=== PATIENT | male | born 1950 | race African-American/Black ===

== ENCOUNTER 2021-06-06 21:30 | Inpatient (IN) | payer OTHER ==
[~2021-06-06] VITALS: Ht 198.1 cm; Wt 89.8 kg
--- NOTE | ~2021-06-06 | EMS ---
[address] [address] EMS Patient Care Report Name: SUSAN SULLIVAN Room #: 206-P ADM IN M.R.#: [id number] Admission: 06/06/21 Attend Phys: Darien Hernandez MD Discharge: Date of : 50 Report #: [id number] THIS REPORT FOR: //name// Report Transmitted: 06/09/2021 15:13 EMS Care Summary [place], [place] Incident [id number] @ 06/06/2021 20:53 Incident Location [address] [place] [address] Patient SUSAN SULLIVAN Male, 70 Years 1951-02-14 Patient Address [address] [place] [address] Patient History Pneumonia, Chief Complaint Shortness of breath Disposition Transported No Lights/[place] Dispatch Reason Breathing Problem Transported To [facility] Narrative M42 arrived on scene to find the patient standing upright. Staff had called because the patient had been very short of breath after walking this evening. The doctor at the facility had diagnosed the patient with possible pneumonia this morning. Patient after he would stand up and walk 02 sat was around 85% and his respiratory rate was 30 according to nursing staff. Patient was in no apparent respiratory distress for us. Patient denied chest pain, fever, or cough. Patient was moved to the cot and secured with seat belts. En route to [address] [address] EMS Patient Care Report Name: SUSAN SULLIVAN Room #: 206-P ADM IN [facility]#: [id number] Admission: 06/06/21 Attend Phys: Darien Hernandez MD Discharge: Date of : 50 Report #: [id number] the hospital no changes in the patient condition occurred. M42 arrived on scene of the hospital and patient care was transferred to the RN. Initial Vitals @21:02P: 89,R: 16,BP: 125/84,Pain: 0/10,GCS: 14,Glucose: 143,CO: 9,SpO2: 93,Revised Trauma: 12, @21:09P: 88,R: 16,BP: 124/86,Pain: 0/10,GCS: 14,CO: 7,SpO2: 94,Revised Trauma: 12, Assessments @20:58MENTAL:Person Oriented,Event Oriented,Confused,SKIN:No Abnormalities,HEENT:Head/Face: No Abnormalities,Eyes: No Abnormalities,Neck/Airway: No Abnormalities,LUNG SOUNDS:General: No Abnormalities,Left Upper: No Abnormalities,Right Upper: No Abnormalities,Left Lower: No Abnormalities,Right Lower: No Abnormalities,ABDOMEN:General: No Abnormalities,Left Upper: No Abnormalities,Right Upper: No Abnormalities,Left Lower: No Abnormalities,Right Lower: No Abnormalities,PELVIS//GI:No Abnormalities,EXTREMITIES:Left Arm: No Abnormalities,Right Arm: No Abnormalities,Left Leg: No Abnormalities,Right Leg: No Abnormalities,PULSE:NEURO:No Abnormalities,@21:11MENTAL:Event Oriented,Person Oriented,Confused,SKIN:No Abnormalities,HEENT:Head/Face: No Abnormalities,Eyes: No Abnormalities,Neck/Airway: No Abnormalities,LUNG SOUNDS:General: No Abnormalities,Left Upper: No Abnormalities,Right Upper: No Abnormalities,Left Lower: No Abnormalities,Right Lower: No Abnormalities,ABDOMEN:General: No Abnormalities,Left Upper: No Abnormalities,Right Upper: No Abnormalities,Left Lower: No Abnormalities,Right Lower: No Abnormalities,PELVIS//GI:No Abnormalities,EXTREMITIES:Left Arm: No Abnormalities,Right Arm: No Abnormalities,Left Leg: No Abnormalities,Right Leg: No Abnormalities,PULSE:NEURO:No Abnormalities, Impression Shortness of breath Procedures @20:58 ALS Assessment Response: UnchangedSucceeded Timeline 20:51,Call Received 20:51,Dispatch Notified 20:53,Dispatched 20:53,En Route 20:57,On Scene 20:58,At Patient 20:58,ALS Assessment,Response: UnchangedSucceeded, 21:02,BP: 125/84 M,PULSE: 89,RR: 16 R,SPO2: 93 Ox,ETCO2: ,B,PAIN: 0,GCS: [address] [address] EMS Patient Care Report Name: SUSAN SULLIVAN Room #: 206-P ADM IN M.R.#: [id number] Admission: 06/06/21 Attend Phys: Darien Hernandez MD Discharge: Date of : 50 Report #: [id number] 14, 21:09,BP: 124/86 M,PULSE: 88,RR: 16 R,SPO2: 94 Ox,ETCO2: ,BG: ,PAIN: 0,GCS: 14, 21:11,Depart Scene 21:18,At Destination 21:29,Call Closed Disclaimer v1.1 Copyright 2020 [employer] This EMS Care Summary contains data elements from the applicable legal record (which may be displayed differently). It is designed to provide pertinent information for the following purposes: continuity of care, clinical quality, and state data reporting. The complete legal record is available to ED staff and administrators of the receiving hospital in [employer]'s Patient Tracker. All data is provided "as is."
[2021-06-06 21:40] VITALS: BP 139/40
[2021-06-06 21:46] LABS: HEMATOCRIT 30.3 % (42.0-52.0); HEMOGLOBIN 10.1 gm/dL (14.0-18.0); MCH 20.1 pg (26.0-34.0); MCHC 33.3 g/dL (28.0-37.0); MCV 60.4 fL (80.0-100.0); PLATELET COUNT 608 thou/uL (150-400); RBC 5.01 mil/uL (4.50-6.00); RDW 18.6 % (10.5-14.5); WBC 22.1 thou/uL (4.0-11.0)
[2021-06-06 21:57] LABS: CALCIUM 8.6 mg/dL (8.5-10.1); CREATININE 0.8 mg/dL (0.7-1.3); POTASSIUM 5.6 mmol/L (3.5-5.1)
[2021-06-06 22:02] LABS: ALBUMIN 1.9 g/dL (3.4-5.0); TOTAL BILIRUBIN 0.4 mg/dL (0.2-1.0); TOTAL PROTEIN 7.7 g/dL (6.4-8.2)
[2021-06-06 22:28] LABS: ABSOLUTE NEUTROPHILS 20.1 thou/uL (1.4-8.2); METAMYELOCYTES 1 %; PLATELET ESTIMATE MARKEDLY INCREASED
[2021-06-06 22:29] LABS: ANISOCYTOSIS 1+; BURR CELLS 1+; LARGE PLATELETS FEW; POIKILOCYTOSIS 1+; POLYCHROMASIA 1+; SCHISTOCYTES 1+
[2021-06-06 23:30] LABS: BE(vivo) 3.7 mmol/L (-2 to +3); HCO3 29.6 mmol/L (22.0-26.0); PCO2 50.4 mmHg (35.0-45.0); PO2 73.3 mmHg (80.0-100.0); pH 7.386 (7.360-7.450); sO2 94.4 % (92.0-98.0)
[2021-06-07] VITALS (8 sets, daily range): BP systolic 111–137; BP diastolic 74–91
[2021-06-07 02:16] LABS: BF NUCLEATED CELLS 3108 /mm3; BF RBC 7663 /mm3; CLARITY CLOUDY; COLOR YELLOW; SOURCE PLEURAL; TOTAL VOLUME 6.5 mL
[2021-06-07 03:17] LABS: HEMATOCRIT 34.6 % (42.0-52.0); HEMOGLOBIN 10.8 gm/dL (14.0-18.0); MCH 19.1 pg (26.0-34.0); MCHC 31.1 g/dL (28.0-37.0); MCV 61.4 fL (80.0-100.0); RBC 5.64 mil/uL (4.50-6.00); RDW 18.3 % (10.5-14.5); WBC 17.1 thou/uL (4.0-11.0)
--- NOTE | 2021-06-07 04:00 | NUR ---
PT IS AN ADMIT ORIENTATION X2. SOME CONFUSION HISTORY OF DEMENTIA AND PARANOID SCHIZOPHRENIA. PT WAS AN ADMIT FOR PLEURAL EFFUSION WITH CHEST TUBE PLACEMENT TO LEFT SIDE AND DRAINED. PT IS VERY HARD OF HEARING. LUNGS ARE CLEAR TO DIMINNISHED. NO EDEMA NOTED. PT HERNIA ON SCROTUM WITH ASSESSMENT. ANTIBIOTICS GIVEN ORDERED. DENIES ANY COMPLAINTS OF PAIN NOTED. CALL LIGHT WITHIN REACH IF NEEDS ASSISTANCE PER NURSING
[2021-06-07 04:27] LABS: CALCIUM 8.7 mg/dL (8.5-10.1); CREATININE 0.7 mg/dL (0.7-1.3)
[2021-06-07 04:33] LABS: POTASSIUM 4.6 mmol/L (3.5-5.1)
--- NOTE | 2021-06-07 04:38 | NUR ---
PT IS ALERT AND ORIENTED X4. LUNGS ARE CLEAR TO DIMINISHED. UP TO BEDSIDE COMMODE WITH STANBY ASSISTANCE X1. COMPLAINS OF CONSTIPATION. BUT UNABLE TO HAVE A BOWEL MOVEMENT. DENIES ANY PAIN ISSUES. EXPLAIN TO PT FLUID RESTRICTION AT THIS TIME. PT UNAWARE OF RESTRICTION. VERBALIZES UNDERSTANDING NOW ONCE EXPLAIN TO PT PER CARE. CALL LIGHT WITHIN REACH IF NEEDS ASSISTACE PER NURSING.
[2021-06-07 05:04] LABS: BF MACROPHAGE 0 %; BF NEUTROPHILS 52 %
[2021-06-07 09:45] LABS: SOURCE THORACENTESIS
--- NOTE | 2021-06-07 09:58 | EKG ---
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
--- NOTE | 2021-06-07 10:28 | NUR ---
TOOK OVER CARE OF PATIENT AT 0700. PATIENT RESTING IN BED DURING REPORT. ASSESSED PATIENTS LEFT CHEST TUBE SITE; DX SATURATION WITH BLOOD TINGED FLUID; DRESSING CHANGED AND SECURED. PT SLEEPING IN BED AT THIS TIME. DENIES ANY SOA, PAIN, DIZZINESS, OR NAUSE. FALL PRECAUTIONS IN PLACE AND CALL LIGHT WITHIN REACH. PATIENT WEARING 1 L OXYGEN VIA NASAL CANNULA. DENIES ANY NEEDS AT THIS TIME. ASSESSMENT CHARTED.
--- NOTE | 2021-06-07 12:17 | NUR ---
THIS PATIENT WAS ATTEMPTING TO EXIT THE BED. THIS NURSE REDIRECTED PATIENT TO SIT BACK DOWN ON BED. PATIENTS CHEST TUBE DX SATURATED WITH PINK-TINGED DRAINAGE. CALLED DR. PUCKETT REGARDING INCREASED DRAINAGE. DR. PUCKETT STATED TO CONTINUME MONITORING DRAINAGE AND COMPLETE DRESSING CHANGES NEEDED. DR. PUCKETT STATED HE WOULD COME TO LOOK AT THE CHEST TUBE. WILL CHANGE THE DRESSING AND CONTINUE TO MONITOR.
[2021-06-08] VITALS (7 sets, daily range): BP systolic 108–125; BP diastolic 66–84
--- NOTE | 2021-06-08 06:03 | NUR ---
This RN was informed patient was smoking in room. RN to bedside, RN and team found 3 cigar butts in patient bed. With security personal belongings seized and room searched. Informed warehouse person and RN to write verge report.
[2021-06-08 09:06] LABS: BODY FLUID AMYLASE 35 U/L (()); BODY FLUID GLUCOSE 84 mg/dL (()); BODY FLUID LDH 395 IU/L (()); BODY FLUID PROTEIN 5.2 g/dL (())
--- NOTE | 2021-06-08 16:51 | NUR ---
PATIENT ASSESMENTS CHARTED. PATIENT HAS BEEN CONFUSED AND JUMPING OUT OF BED ALL DAY. HAS CHEST TUBE, GAMA, AND ANTIBIOTICS HOOKED UP. CHEST TUBE HAS PUT OUT 100ML THIS SHIFT.
[2021-06-09 03:22] VITALS: BP 112/62
--- NOTE | 2021-06-09 06:20 | NUR ---
ASSUMED CARE OF PT AT 1900. PT ASSESSED TO BE AOX1 70M PRESENTING WITH PE W CH TUBE, PNEUMONIA, AND SEPSIS. PT RESTED THROUGHOUT THE NIGHT IN BED WITH NO COMPLAINTS, VSS. PT STABLE ON RA BUT USES 2L FOR COMFORT, RUNS NS ON TELE, L CHEST TUBE TO -20 SUCTION AND STABLE (DRESSING CHANGED WITH MAIN ENTREE COOK AND CASHIER), GAMA PATENT, AND WAS ABLE TO HAVE SMALL BM THIS AM. SCROTAL EDEMA EXCESSIVE DUE TO INGUINAL HERNIA. RESTING IN ROOM NOW, WILL CONT TO MONITOR.
[2021-06-09 07:45] VITALS: BP 122/75
[2021-06-09 11:40] VITALS: BP 132/86
[2021-06-09 15:11] VITALS: BP 133/87
--- NOTE | 2021-06-09 18:38 | NUR ---
PATIENT ASSESMENTS COMPLETED AND CHARTED. PATIENT CONFUSED BUT FOLLOWING COMMANDS TODAY. ATE ALL MEALS 100%. DOCTORS DEBATING BRONCH. CAT SCAN DONE TODAY.
[2021-06-09 20:45] VITALS: BP 126/83
[2021-06-10 04:44] LABS: CALCIUM 8.5 mg/dL (8.5-10.1); CREATININE 0.9 mg/dL (0.7-1.3); POTASSIUM 3.6 mmol/L (3.5-5.1)
[2021-06-10 04:45] VITALS: BP 131/90
[2021-06-10 08:06] VITALS: BP 159/80
[2021-06-10 08:30] VITALS: BP 121/83
--- NOTE | 2021-06-10 08:39 | NUR ---
assessments as charted , vss, no c/o pain, remains confused and impulsive, reinforced ct tape and coban at iv site, pt more talkative this am found in room with his street clothes on, report given to next shift to con't ppoc
[2021-06-10 12:00] VITALS: BP 102/61
[2021-06-10 15:28] VITALS: BP 136/84
--- NOTE | 2021-06-10 16:35 | NUR ---
met with patient who admits from [facility]. Patient admits with SOA/Pna. Patient says yes to many questions. Spoke of Chris who is his roommate at [facility]. Sp with Jake at [facility]. Patient with need for Bronch, patient cannot consent. Jake reports no DPOA. Emergency contact is brother Oneil and Sister Lisset Carrera [phone]. Sp with Brother Oneil [phone] updated of role of casemgt faxed clinical information to [place]. Oneil would like to be called at co. Casemgt following.
[2021-06-10 19:43] VITALS: BP 114/68
[2021-06-11] MEDS ORDERED: AMLODIPINE BESY10 MG PO (00:04)
[2021-06-11] MEDS ORDERED: FOLIC ACID1 MG PO (00:05)
[2021-06-11] MEDS ORDERED: CARVEDILOL25 MG PO (00:05)
[2021-06-11] MEDS ORDERED: LISINOPRIL20 MG PO (00:06)
[2021-06-11] MEDS ORDERED: KLOR-CON M2020 MEQ PO (00:07)
[2021-06-11] MEDS ORDERED: RISPERIDONE2 MG PO (00:08)
[2021-06-11] MEDS ORDERED: RISPERDAL2 MG PO (00:09)
[2021-06-11] MEDS ORDERED: TORSEMIDE20 MG PO (00:09)
[2021-06-11] MEDS ORDERED: ACETAMINOPHEN500 MG PO (00:10)
--- NOTE | 2021-06-11 03:19 | NUR ---
ASSUMED PT CARE AT 1900, PT IS AWAKE, ALERT TO SELF, CONFUSE; IMPULSIVE TO THE B/S COMMODE WITHOUT ASSISTANCE; PT REDIRECTED TO BED AND REMINDED TO USE CALL LIGHT FOR NEEDS; PT GOT UP AND WAS ABLE TO PUT CLOTHES ON, PT REFUSED TO GET BACK TO BED, WANTING TO LEAVE, SECURITY WAS CALLED, PT WAS PUT BACK TO BED, CT IN PLACE; REINFORCED WITH FOAM TAPE, SA/SR ON TELE, VSS, REMAINS ON IV ABX, PT IS NPO FOR BRONCHOSCOPY TODAY, PROGRESSING SLOWLY TOWARDS POC, WILL CONTINUE TO MONITOR PT PER POC
[2021-06-11 05:11] VITALS: BP 116/73
--- NOTE | 2021-06-11 08:44 | NUR ---
Assumed care of pt this AM. Pt leaving for bronchoscopy @ 0700. Chest tube in place on lt side & set to -20 suction. Will assess pt once back on unit.
[2021-06-11 09:51] VITALS: BP 123/85
--- NOTE | 2021-06-11 12:07 | PATH ---
[facility] [address] [place] [address] PATHOLOGY RPT PROCEDURE Name: SUSAN SULLIVAN Room #: 206-P ADM IN M.R.#: [id number] Admission: 06/06/21 Date of : 50 Discharge: Report #: [id number] Path Case #: [id number] Note [facility] Accession Number: [id number] TESTS RESULT FLAG UNITS REF RANGE LAB Clinician Provided Cytology Information No. of containers..01 Other (Miscellaneous) Source: 01 PLEURAL FLUID DIAGNOSIS: 02 PLEURAL FLUID NEGATIVE FOR MALIGNANT CELLS. SCANT CELLULARITY. Comment: Specimen consists of few degenerated mesothelial cells and inflammatory cells. Signed out by: 02 Kerry Garcia MD, Pathologist NPI- [id number] Performed by: 01 Valerie Godfrey Print Finisher ([facility]) Gross description: 01 1 ML, YELLOW, HAZY /LCS 06/10/2021 1300 Local FLAG LEGEND: L-Low Normal,H-High Normal,LL-Alert Low,HH-Alert High <-Panic Low,>-Panic High,A-Abnormal,AA-Critical Abnormal Performed at: [address] [place] [address] Jagjit Martinez MD, [address] [address] Ann Adair MD, Specimen Comment: A courtesy copy of this report has been sent to [phone] Specimen Comment: Report sent to Performed at: [address], [place], [place] [id number] MD Jagjit Martinez MD Phone: [phone]
[2021-06-11 12:08] VITALS: BP 125/88
[2021-06-11 14:49] LABS: ABSOLUTE NEUTROPHILS 18.1 thou/uL (1.4-8.2); BASOPHILS 0.1 % (0.0-2.0); EOSINOPHILS 0.4 % (0.0-3.0); HEMOGLOBIN 11.5 gm/dL (14.0-18.0); LYMPHOCYTES 2.7 % (24.0-44.0); MCH 19.2 pg (26.0-34.0); MCHC 31.2 g/dL (28.0-37.0); MCV 61.6 fL (80.0-100.0); MONOCYTES 3.1 % (1.0-8.0); PLATELET COUNT 620 thou/uL (150-400); POLYS 93.7 % (36.0-66.0); RBC 6.01 mil/uL (4.50-6.00); RDW 18.6 % (10.5-14.5); WBC 19.4 thou/uL (4.0-11.0)
[2021-06-11 15:04] LABS: APTT 24.6 Seconds (24.5-32.8); INR 1.16; PROTIME 12.6 Seconds (10.5-12.1)
[2021-06-11 15:05] VITALS: BP 110/82
[2021-06-11 15:17] LABS: HYPOCHROMASIA 2+; MICROCYTES 1+
[2021-06-11 15:18] LABS: ANISOCYTOSIS 1+
--- NOTE | 2021-06-11 18:47 | NUR ---
Received pt to room 208 from 4S around 1600. Received pt on 150mL NS, with orders to decrease fluids to 75mL/hr from Dr. Rojas this AM. Called Dr. Dumont, per d/c fluids & await addt. orders from Dr. Rojas. Pt noted to be tachypneic, labored breathing, mottled & with poor cap refill. Per Dr. Dumont, order received to repeat CXR & ABGs. Pt oriented to self & extremely tearful stating that she hurts. Pt states that people are hurting her when no one is touching her. Orders received from Dr. Dumont for PRN IV pain medication. Wounds to rt grt toe, pad of rt grt toe, rt heel, buttocks, & lt arm.
[2021-06-11 19:50] VITALS: BP 118/81
[2021-06-12] VITALS (7 sets, daily range): BP systolic 114–146; BP diastolic 75–90
--- NOTE | 2021-06-12 05:41 | NUR ---
ASSUMED PT CARE AT 1900, SR ON TELE, DENIES PAIN OR SOA, ASSESSMENTS CHARTED, CHEST TUBE REMAINS IN PLACE, DRAINING SEROUS FLUID, DRESSING INTACT, GAMA IN PLACE, ADEQUATE U/O, LOOSE BM THIS SHIFT, REMAINED CONFUSED, WILL CONTINUE TO MONITOR PER POC
[2021-06-12 08:42] LABS: URINE BILIRUBIN NEGATIVE (Negative); URINE BLOOD 1+ (Negative); URINE CLARITY CLEAR; URINE COLOR YELLOW; URINE GLUCOSE-RANDOM* NEGATIVE (Negative); URINE KETONES NEGATIVE (Negative); URINE LEUKOCYTES-REFLEX TRACE (Negative); URINE NITRITE-REFLEX NEGATIVE (Negative); URINE PROTEIN (DIPSTICK) NEGATIVE (Negative); URINE SPECIFIC GRAVITY 1.025 (1.005-1.035); URINE UROBILINOGEN 0.2 E.U./dl (0.2-1.0)
[2021-06-12 09:49] LABS: SQUAMOUS >10 Many /LPF (0-3)
[2021-06-12 09:50] LABS: BACTERIA-REFLEX 1-9 Few /HPF (None Seen); CASTS None Seen /LPF (None Seen); CRYSTALS None Seen /LPF (None Seen); URINE RBC 3-10 Few /HPF (NONE SEEN); URINE WBC-REFLEX 0-5 Rare /HPF (0-5)
--- NOTE | 2021-06-12 13:11 | NUR ---
CARE HANDED OFF TO DAINA ENCISO AT THIS TIME. PATIENT STABLE AT TIME OF HAND OFF
--- NOTE | 2021-06-12 14:10 | NUR ---
took over care of this patient at 1300 after getting report from Verito LAMA. patient resting in bed at this time. patient wearing 2 L oxygen via NC. patient denies soa, denies coughing. patient denies pain. patient denies any needs at this time. fall precautions in place and call light within reach. will continue to monitor and assessments as charted.
--- NOTE | 2021-06-12 17:40 | NUR ---
Spoke with [facility]. Faxed clinical updates.
--- NOTE | 2021-06-13 03:00 | NUR ---
ASSUMED PT CARE AT 1900, ALERT TO SELF. NON-VERBAL, ASSESSMENTS CHARTED, SR/ST ON TELE, FOLEFY CATHETER IN PLACE; ADEQUATE U/O, CHEST TUBE IN PLACE DRAINING WELL; DRESSING CHANGED, SKIN WITHIN NORMAL LIMITS, DENIES PAIN OR SOB, REMAINS ON RA, O2SATS ND OTHER VITAL SIGNS STABLE, INCONTINENT OF LOOSE STOOLX1 THIS SHIFT, DENIES CONCERNS, WILL CONTINUE TO MONITOR PT PER POC
[2021-06-13 04:34] VITALS: BP 112/77
--- NOTE | 2021-06-13 05:27 | NUR ---
assumed pt care at 1900, alert to self, place, pleasantly confused, assessments as charted, sr/sb on tele with pacs, palmer in place with adequate u/o, left chest tube intact, dressing chnaged, skin within normal limits, denies pain or sob, remains on room air, o2sats and other vss stable, incontinent of loose stoolx1 this shift, denies concerns, remains on iv abx, will continue to monitor per poc
[2021-06-13 07:34] VITALS: BP 124/85
[2021-06-13 11:19] VITALS: BP 129/92
[2021-06-13 13:36] LABS: HEMATOCRIT 38.7 % (42.0-52.0); HEMOGLOBIN 11.9 gm/dL (14.0-18.0); MCHC 30.7 g/dL (28.0-37.0); PLATELET COUNT 517 thou/uL (150-400); RBC 6.24 mil/uL (4.50-6.00); RDW 18.9 % (10.5-14.5); WBC 19.2 thou/uL (4.0-11.0)
[2021-06-13 14:03] LABS: CALCIUM 8.8 mg/dL (8.5-10.1); CREATININE 1.3 mg/dL (0.7-1.3); MAGNESIUM 2.3 mg/dL (1.8-2.4)
[2021-06-13 14:17] VITALS: BP 111/67
[2021-06-13 15:07] LABS: ABSOLUTE NEUTROPHILS 17.9 thou/uL (1.4-8.2); METAMYELOCYTES 1 %; MYELOCYTES 3 %
[2021-06-13 15:10] LABS: HYPOCHROMASIA 2+; MICROCYTES 2+
[2021-06-13 15:11] LABS: ANISOCYTOSIS 2+; POIKILOCYTOSIS 2+
--- NOTE | 2021-06-13 16:48 | NUR ---
Patient resides at [facility]. Therapy evals in process. patient may need post acute care. [facility] does not have skilled unit.
[2021-06-13 19:46] VITALS: BP 104/56
--- NOTE | 2021-06-13 22:04 | NUR ---
PT UP IN CHAIR TODAY WITH PT, PT UP READING BIBLE, KNOWS NAME, , LOCATION, WAS CONFUSED WITH YEAR, FOLLOW COMMANDS, NO PAIN OR DISTRESS, PT CLEANED, BEDDING CHANGED, CHEST TUBE NOTED AND MONITOR, PT EDUCATED ON FALL RISK, USES CALL LIGHT TO CONTACT STAFF. NO COMPLAINTS OR CONCERNS AT THIS TIME.
[2021-06-14 04:46] VITALS: BP 126/64
--- NOTE | 2021-06-14 06:36 | NUR ---
PATIENT RESTING IN HIS ROOM. HE IS AAOX2. NOTED CHECT TUBE IN PLACE TO L CHEST WALL TO SUCTION. DRESSING IS CDI. NOTED 30CC OUTPUT DURING THIS SHIFT. PATIENT DENIES PAIN OR NEEDS. WAS ABLE TO FOLLOW ALL COMMANDS A INTRUCTIONS TONIGHT. TOOK ALL MEDICATIONS PRDERED. NO S/S OF DISTRESS NOTED, WILL CONTINUE TO MONITOR.
[2021-06-14 07:55] VITALS: BP 128/85
[2021-06-14 11:45] VITALS: BP 133/91
[2021-06-14 20:00] VITALS: BP 127/77
[2021-06-15 04:30] VITALS: BP 140/86
--- NOTE | 2021-06-15 05:19 | NUR ---
PT IS ALERT AND OREINTED X2 WITH FOREGETFULLNESS. DENIES ANY COMPLAINTS OF PAIN. LUNGS ARE COARSE HAS CHEST TUBE ON THE LEFT SIDE TO SUCTION. DRAINING SEROSANGIOUS FLUID NOTED IN CHAMBER. -20 TO PRESSURE. NO EDEMA NOTED JUST DRY SKIN PT HAS A GAMA CATH TO DD WITH YELLOW URINE PRESENT.DENIES ANY PAIN NOTED WITH ASSESSMENNT PER NURSING. RESTING COMFORTABLY.
[2021-06-15 08:00] VITALS: BP 123/83
[2021-06-15 11:30] VITALS: BP 126/83
[2021-06-15 16:00] VITALS: BP 135/90
[2021-06-15 16:30] VITALS: BP 135/90
[2021-06-15 17:06] LABS: BODY FLUID ALBUMIN 0.3 g/dL (Not Estab.); BODY FLUID GLUCOSE < 2 mg/dL (()); BODY FLUID LDH 2570 IU/L (())
--- NOTE | 2021-06-15 17:16 | NUR ---
PT RESTED IN BED AND DENIED COMPLAINTS. MID AFTERNOON PT GOT HIMSELF OUT OF BED WITHOUT USING HIS CALL LIGHT TO USE THE BEDSIDE COMMODE, DISCONNECTING THE GAMA BAG FROM THE GAMA. REATTACHED THE CONNECTION GAMA APPEARS TO BE WORKING APPROPRIATELY. PT WAS REEDUCATED ON THE NEED TO USE HIS CALL LIGHT. PT HAD 1 BOWEL MOVEMENT. NO VISITORS TODAY.
[2021-06-15 19:42] VITALS: BP 118/85
--- NOTE | 2021-06-16 04:12 | NUR ---
RECEIEVED PATIENT AT 1900H.ASSESSMENT DONE CHARTED.MEDS GIVEN PER SEP.CHA LEFT CHEST TUBE INTACT, ON -20 SUCTION PRESSURE.WITH GAMA CATHETER INTACT.ALL NEEDS ATTENDED.TO CONTINOUSLY MONITOR.
[2021-06-16 04:17] VITALS: BP 136/88
[2021-06-16 07:30] VITALS: BP 130/96
[2021-06-16 08:11] LABS: BODY FLUID AMYLASE 27460 U/L (())
[2021-06-16 10:03] LABS: SOURCE CHEST
[2021-06-16 11:00] LABS: HEMATOCRIT 37.3 % (42.0-52.0); HEMOGLOBIN 11.3 gm/dL (14.0-18.0); MCH 18.9 pg (26.0-34.0); MCHC 30.4 g/dL (28.0-37.0); MCV 62.2 fL (80.0-100.0); PLATELET COUNT 451 thou/uL (150-400); RDW 19.9 % (10.5-14.5); WBC 20.3 thou/uL (4.0-11.0)
[2021-06-16 11:18] LABS: CALCIUM 8.5 mg/dL (8.5-10.1); CREATININE 1.3 mg/dL (0.7-1.3); MAGNESIUM 2.1 mg/dL (1.8-2.4); POTASSIUM 4.4 mmol/L (3.5-5.1); TOTAL BILIRUBIN 0.3 mg/dL (0.2-1.0); TOTAL PROTEIN 6.4 g/dL (6.4-8.2)
[2021-06-16 12:00] VITALS: BP 117/80
[2021-06-16 13:00] LABS: ABSOLUTE NEUTROPHILS 19.5 thou/uL (1.4-8.2); PLATELET ESTIMATE NORMAL
--- NOTE | 2021-06-16 16:12 | NUR ---
Assumed care of pt this AM. Pt is A&O x2. on RA. SR on the monitor. Lt chest tube intact & hooked to -20 suction, draining serous fluid. Pt denies any pain. Critical result called to this nurse regarding blood glucose @ 534. Dr notified & orders obtained for sliding scale insulin.
[2021-06-16 16:30] VITALS: BP 128/66
[2021-06-16 19:45] VITALS: BP 114/77
--- NOTE | 2021-06-17 04:42 | NUR ---
Pt is alert and and confused. No sign of distress noted in pt. Pt is laying in bed, resting comfortably. Denies pain. Fall precaution in place. Assessment completed and documented. Scheduled meds administered to pt. No acute event noted. Continue to monitor.
[2021-06-17 04:53] VITALS: BP 123/85
[2021-06-17 07:42] VITALS: BP 135/84
[2021-06-17 11:24] VITALS: BP 110/78
[2021-06-17 15:41] VITALS: BP 96/63; BP 98/59
[2021-06-17 15:59] VITALS: BP 116/75
--- NOTE | 2021-06-17 18:33 | NUR ---
Assumed care of pt this AM. Pt is A&O x2. Pt extra sleepy this shift. Chest tube in place & set to -20 suction. Pt denies any pain. Speech eval today w/ diet change & 100% supervision while eating. High fall precautions in place.
[2021-06-17 19:53] VITALS: BP 100/71
--- NOTE | 2021-06-18 03:23 | NUR ---
PT IS ALERT AND ORIENTED X2. WITH SOME CONFUSION. PT SLEEPING. LUNGS ARE CLEAR DIMINISHED ON ROOM AIR. PT HAS A CHEST TUBE ON LEFT SIDE TO SUCTION. ABDOMEN IS SOFT FLAT. ACTIVE BOWEL SOUNDS. GAMA CATH TO DD . DENIES ANY COMPLAINTS OF PAIN. CALL LIGHT WITHIN REACH IF NEEDS ASSSISTANCE. BED ALARM ON FOR PT SAFETY AT THIS TIME TIME. ONGOING NURSING CARE
[2021-06-18 04:45] VITALS: BP 96/63
[2021-06-18 07:55] VITALS: BP 115/81
[2021-06-18 08:00] VITALS: BP 115/81
[2021-06-18 11:31] VITALS: BP 92/59
[2021-06-18 16:37] VITALS: BP 108/76
--- NOTE | 2021-06-18 17:01 | NUR ---
5N cont to follow. Oncology consulted regarding lung mass. Oncology to sp with brother regarding plan of care.
--- NOTE | 2021-06-18 17:19 | NUR ---
PATIENT BIOPSY OF LEFT LUNG SHOWED INVASIVE SQUAMOUS CELL CANCER, SUSPECTED STAGE 4, AND POOR PROGNOSIS. HE IS NOT A SURGICAL CANDIDATE D/D UNCLEAR MARGINS OF THE CANCER. ONCOLOGY WAS CONSULTED. WILL LIKELY NEED A PALLIATIVE CARE CONSULT. THE FINDINGS WERE DISCUSSED WITH THE PATIENT'S BROTHER THIS MORNING.
[2021-06-18 19:50] VITALS: BP 103/50
[2021-06-19 05:48] VITALS: BP 107/71
[2021-06-19 07:21] VITALS: BP 94/57
--- NOTE | 2021-06-19 07:29 | NUR ---
ASSUME CARE 1900. PT/VITALS STABLE. BP RUNS SOFT AT TIMES. DENIES ANY PAIN. A/O TO PERSON AND SOMETIMES, PLACE. NO DISTRESS NOTED THROUGH THE NIGHT. SR ON MONITOR. ASSESSMENT CHARTED. PROGRESSING MODERATELY TO POC. PLAN IS TO CONITNUE WITH ABX THERAPY AND CONSULT WITH ONCOLOGY FOR FURTHER POC. WILL CONTINUE TO MONITOR AND FOLLOW WITH POC
[2021-06-19 11:26] VITALS: BP 93/59
--- NOTE | 2021-06-19 14:27 | HC ---
[facility] [place] [address] CONSULTATION Name: SUSAN SULLIVAN Room #: 206-P ADM IN M.R.#: [id number] Admission: 06/06/21 Attend Phys: Darien Hernandez MD Discharge: Date of : 50 Report #: [id number] THIS REPORT FOR: cc: FAM - Family physician unknown FAM - Family physician unknown Fahad Crandall MD ~ DATE OF SERVICE: 06/16/2021 REASON FOR CONSULTATION: We were asked to see the patient for evaluation and treatment of left pleural effusion. HISTORY OF PRESENT ILLNESS: The patient is a 70-year-old admitted from [facility] with shortness of breath on 06/06/2021. Chest x-ray on admission showed whiteout on the left side and from the chart it appears that over a liter of fluid was obtained per the chest tube, but drainage has tapered to 50-[address] scan of the chest on 06/09 showed a moderate left hydropneumothorax with debris in the left mainstem bronchus in their opinion, the patient has not had bronchoscopy, however. The patient is a pleasant fellow who does respond to command, but gives relatively little information and most of the objective data is obtained from the chart. PAST MEDICAL HISTORY: Significant for schizophrenia, hypertension, hearing impairment. SOCIAL HISTORY: As mentioned, the patient lives in [facility], is a smoker, according to the chart. REVIEW OF SYSTEMS: I agree with the review of systems as presented in the chart. PHYSICAL EXAMINATION: GENERAL: The patient is sitting in bed, awake, alert and appears comfortable. VITAL SIGNS: Temperature 36.4, heart rate 86, blood pressure 128/87, O2 sat 97 on room air. HEENT: No scleral icterus. No arcus. NECK: No mass, no bruit. CHEST: Decreased breath sounds, left chest. HEART: Rhythm regular, no murmur. ABDOMEN: Soft. EXTREMITIES: No clubbing, cyanosis or edema. PSYCHIATRIC: Answers questions, but repeats information and is not always responsive in a useful manner. [facility] [address] [place] [address] CONSULTATION Name: SUSAN SULLIVAN [place] Room #: 206-P ADM IN M.R.#: [id number] Admission: 06/06/21 Attend Phys: Darien Hernandez MD Discharge: Date of : 50 Report #: [id number] ASSESSMENT AND PLAN: I could give you a differential diagnosis for "whiteout of the left chest" but there is no histologic evidence for malignancy at this point. There is no clearcut evidence for bronchial obstruction and absent that I suspect this is a chronic infectious or neoplastic process. A freestanding bronchoscopy would identify any endobronchial lesions and might obviate more invasive studies down the road, performing a video-assisted thoracoscopy as an initial procedure would be aggressive and may compel us to escalate with the thoracotomy and in this situation may be excessive. I will discuss case with other physicians. Thank you for the consult. <ELECTRONICALLY SIGNED> By: Fahad Crandall MD 06/19/21 1427 1549 0010 Fahad Crandall MD /nt
[2021-06-19 15:22] VITALS: BP 107/70
--- NOTE | 2021-06-19 18:30 | NUR ---
PATIENT ASSESMENTS CHARTED. PATIENT NOT VERY ACTIVE TODAY. ONCOLOGY UPDATED PATIENT ABOUT CANCER DIAGNOSIS AND CARE.
[2021-06-19 19:46] VITALS: BP 93/58
--- NOTE | 2021-06-19 22:06 | PATH ---
[facility] [address] [place] [address] PATHOLOGY RPT PROCEDURE Name: SUSAN SULLIVAN Room #: 206-P ADM IN M.R.#: [id number] Admission: 06/06/21 Date of : 50 Discharge: Report #: [id number] Path Case #: [id number] Note [facility] Accession Number: [id number] TESTS RESULT FLAG UNITS REF RANGE LAB Clinician Provided Cytology Information No. of containers..01 Other (Miscellaneous) Source: [A] 01 L BRUSH TIP DIAGNOSIS: [A] 02 L BRUSH TIP POSITIVE FOR MALIGNANT CELLS. SQUAMOUS CELL CARCINOMA IS PRESENT. Comment: The case has been coreviewed with Dr.Christin Chandler who agrees on 06/19/21. Pathologist ICD10: 02 C34.11 Signed out by: 02 Kerry Garcia MD, Pathologist NPI- [id number] Performed by: Chaparro Delgado, Insulation Blanket Maker ([facility]) Gross description: 01 10ML, CLEAR, COLORLESS /LCS 06/18/2021 1348 Local FLAG LEGEND: L-Low Normal,H-High Normal,LL-Alert Low,HH-Alert High <-Panic Low,>-Panic High,A-Abnormal,AA-Critical Abnormal Performed at: [address] [place] [address] Jagjit Martinez MD, [address] [address] Ann Adair MD, Specimen Comment: A courtesy copy of this report has been sent to [phone], [phone] Specimen Comment: [phone] Specimen Comment: Report sent to / DR ELLER Performed at: [address], [place], [place] [id number] MD Jagjit Martinez MD Phone: [phone]
--- NOTE | 2021-06-19 22:06 | PATH ---
[facility] [address] [place] [address] PATHOLOGY RPT PROCEDURE Name: SUSAN SULLIVAN Room #: 206-P ADM IN M.R.#: [id number] Admission: 06/06/21 Date of : 50 Discharge: Report #: [id number] Path Case #: [id number] Note [facility] Accession Number: [id number] TESTS RESULT FLAG UNITS REF RANGE LAB Clinician Provided Cytology Information No. of containers..01 Other (Miscellaneous) Source: LEFT MAIN BAL DIAGNOSIS: LEFT MAIN BAL INADEQUATE, INSUFFICIENT CELLS FOR STUDY. INADEQUATE, NO CELLS FROM PULMONARY SOURCE FOUND IN THIS SPECIMEN. ESSENTIALLY ACELLULAR SPECIMEN. Signed out by: 02 Kerry Garcia MD, Pathologist NPI- [id number] Performed by: Bebe Delgado, Spring Layer ([facility]) Gross description: 01 15ML, RED, TURBID /LCS 06/18/2021 1346 Local FLAG LEGEND: L-Low Normal,H-High Normal,LL-Alert Low,HH-Alert High <-Panic Low,>-Panic High,A-Abnormal,AA-Critical Abnormal Performed at: [address] [place] [address] Jagjit Martinez MD, [address] [address] Ann Adair MD, Specimen Comment: A courtesy copy of this report has been sent to [phone] Specimen Comment: [phone] Specimen Comment: Report sent to / DR ELLER Performed at: [address], [place], [place] [id number] MD Jagjit Martinez MD Phone: [phone]
--- NOTE | 2021-06-19 22:06 | PATH ---
[facility] [address] [place] [address] PATHOLOGY RPT PROCEDURE Name: SUSAN SULLIVAN Room #: 206-P ADM IN M.R.#: [id number] Admission: 06/06/21 Date of : 50 Discharge: Report #: [id number] Path Case #: [id number] Note L[facility] Accession Number: [id number] TESTS RESULT FLAG UNITS REF RANGE LAB Clinician Provided Cytology Information No. of containers..01 Other (Miscellaneous) Source: [A] 01 LEFT LUNG BRUSHING DIAGNOSIS: [A] 02 LEFT LUNG BRUSHING POSITIVE FOR MALIGNANT CELLS. NONSMALL CELL CARCINOMA FAVOR SQUAMOUS CELL CARCINOMA IS PRESENT. Comment: Please see corresponding biopsy results ([id number]) Case coreviewed with Dr. Francoise Chandler who agrees on 06/19/21. Signed out by: 02 Kerry Garcia MD, Pathologist NPI- [id number] Performed by: Chaparro Delgado, Infection Control Specialist ([facility]) Gross description: 01 CLEAR, COLORLESS /LCS 06/18/2021 1343 Local FLAG LEGEND: L-Low Normal,H-High Normal,LL-Alert Low,HH-Alert High <-Panic Low,>-Panic High,A-Abnormal,AA-Critical Abnormal Performed at: [address] [place] [address] Jagjit Martinez MD, [address] [address] Ann Adair MD, Specimen Comment: A courtesy copy of this report has been sent to [phone] Specimen Comment: Report sent to / DR ELLER Performed at: 01 [facility] [address] [place] [address] [address], [place], [place] [id number] MD Jagjit Martinez MD Phone: [phone]
[2021-06-19 23:57] VITALS: BP 112/61
--- NOTE | 2021-06-20 03:59 | NUR ---
PT IS A/O X2 AND IS UP WITH ASSISTANCE X1 TO THE BSC/CHAIR. ROOM AIR. VSS. AFEBRILE. DENIES C/O PAIN OR DISCOMFORT. CHEST TUBE IN PLACE TO LEFT CHEST. NPO SINCE MIDNIGHT AWAITING PROCEDURE. ABDOMINAL BINDER IN PLACE TO SECURE CHEST TUBE PLACEMENT. MEDICATION GIVEN PER MAR. FALL PRECAUTIONS IN PLACE, CALL LIGHT IS WITHIN REACH
[2021-06-20 04:05] VITALS: BP 110/64
[2021-06-20 07:23] VITALS: BP 112/78
[2021-06-20 13:36] VITALS: BP 122/80
[2021-06-20 15:27] VITALS: BP 115/78
--- NOTE | 2021-06-20 16:10 | NUR ---
5N following if plan to proceed with aggresive care 5N will need to obtain auth from [place] medicaid. No weekend dc planned.
--- NOTE | 2021-06-20 17:12 | NUR ---
ACUTE REHAB/5N FOLLOWING PATIENT. WILL REVIEW 06/23/21 AND REQUEST AUTHORIZATION FROM [place] MEDICAID IF APPROPRIATE AND PATIENT IS MEDICALLY READY FOR REHAB ADMISSION. THANK YOU FOR THIS REFERRAL.
--- NOTE | 2021-06-20 17:22 | NUR ---
PATIENT ASSESMENTS CHARTED. PATIENT WENT DOWN FOR A PLEUR-X DRAIN. UNABLE TO PLACE. ON WATER SEAL NOW.
[2021-06-20 19:42] VITALS: BP 111/80
[2021-06-21 04:39] VITALS: BP 107/68
--- NOTE | 2021-06-21 05:58 | NUR ---
ASSUMED CARE OF PT AT 1900. PT ASSESSED TO BE AOX1 70M PRESENTING WITH LARGE L PLEUR EFF WITH CH TUBE SECONDARY TO LUNG CA. PT WAS ABLE TO REST QUIETLY THROUGHOUT THE NIGHT WITH NO COMPLAINTS, VSS. PT CHEST TUBE STABLE TO WATER SEAL AND SECURED WITH ABDOMINAL BINDER, RUNS NS ON TELE, STABLE ON RA, USES URINAL IN BED, AND TOLERATES ORAL MEDS. NO FURTHER COMPLAINTS, WILL CONT TO MONITOR.
[2021-06-21 07:30] VITALS: BP 100/65
[2021-06-21 11:14] VITALS: BP 82/50
--- NOTE | 2021-06-21 14:40 | NUR ---
Assumed care of pt this AM. Pt is oriented x3, however has reorientation paper taped up in room. SR w/ PACs on the monitor, remains on RA. Chest tube to water seal. Pt denies any pain or difficulty breathing. Pt up to chair most of the day. Hypotensive this afternoon. Notified physician, recieved & implemented orders. Frequent assessment in place.
[2021-06-21 15:16] VITALS: BP 82/51
[2021-06-21 17:12] VITALS: BP 113/73
[2021-06-21 19:37] VITALS: BP 101/63
--- NOTE | 2021-06-22 03:38 | NUR ---
PATIENT AAOX2. EXHIBITS MILD MEMORY IMPAIRMENT. HAS TO HAVE SIMPLE INSTRUCTIONS REINFORCED AT TIMES. HAS CT TO L SIDE THAT IS NOW WATER SEALED. PT IS INCONTINENT OF BLADDER AND NOWEL AT TIMES. DENIES PAIN OR NEEDS. BLOOD SUGAR WAS 56 INITIALLY BUT AFTER 25CC OF D50 INCREASED TO 92. ALL OTHER VSS THIS SHIFT. WILL CONTINUE TO MONITOR FOR CHANGES IN STATUS.
[2021-06-22 03:55] VITALS: BP 104/72
[2021-06-22 07:40] VITALS: BP 101/69
[2021-06-22 11:17] VITALS: BP 93/50
[2021-06-22 15:12] VITALS: BP 90/58
[2021-06-22 20:34] VITALS: BP 119/77
--- NOTE | 2021-06-22 23:49 | NUR ---
PATIENT CALM AND COOPERATIVE. CT REMAINS IN PLACE TO LEFT CHEST WALL TO WATER SEAL. PATIENT CONTINUES TO HAVE SOME DIFFICULTY WITH MEMORY. HAD TO BE RE-EDUCATED TO THE CALL LIGHT AND TV CONTROLS. HE IS COMPLIANT AND TAKING ALL OF HIS MEDICATIONS. ALL SAFETY PRECAUTIONS ARE IN PLACE. DENIES PAIN OR NEEDS. VSS. WILL CONTINUE TO MONITOR.
[2021-06-23 04:29] VITALS: BP 122/82
[2021-06-23 07:37] VITALS: BP 127/83
[2021-06-23 11:44] VITALS: BP 106/64
[2021-06-23 15:40] VITALS: BP 104/67
--- NOTE | 2021-06-23 16:17 | NUR ---
PT CONTINUES WITH CHEST TUBE. NO FACILITIES TAKE PTS WITH CHEST TUBES. [facility] STILL FOLLOWING. REHAB VERSE PALLIATIVE CARE. CM FOLLOWING.
[2021-06-23 20:25] VITALS: BP 126/79
[2021-06-24 05:13] VITALS: BP 119/81
--- NOTE | 2021-06-24 06:15 | NUR ---
PATIENTS CARES WHERE ASSUMED AT SHIFT CHANGE. PATIENT WAS ASSESSED AND MEDS WHERE PASSED. PATIENT DID SLEEP IN A UP RIGHT POSITION IN A CHAIR IN HIS ROOM. HE CONTINUES TO HAVE FLUID RUNNING. CHEST TUBE IS IN PLACE WITH NO OUT PUT. THIS NO OUT PUT CONTINUES AND THIS IS THE THIRD DAY. WILL PASS IN REPORT TO SEE IF DR. PUCKETT WILL PULL THE CHEST TUBE. THE TECTONOPHYSICIST NURSING HOPES WILL MEET WITH THE FAMILY TO OBTAIN A DNR AND POSSIBLE HOSPICE PLACEMENT. ROUNDING WAS DONE. PATIENT DID SLEEP ALL THIS SHIFT.
[2021-06-24 07:36] VITALS: BP 111/72
[2021-06-24 12:00] VITALS: BP 114/71
--- NOTE | 2021-06-24 15:05 | NUR ---
REFERRAL SENT TO [facility] FOR MANAGMENT OF PLEUREX DRAIN A POSSIBITY AT HIS HOME AT [facility].
[2021-06-24 16:00] VITALS: BP 119/75
--- NOTE | 2021-06-24 17:10 | NUR ---
Spoke with [facility] Jake and questioned if can have a pluex cath. She reports they cannot manage possibly HH. [facility] often in building however they cannot accept. Cannot accept due to medicaid full and staffing. 5N evaluating. Plan to update [facility]. Referral to [facility] care for acceptance of HH care at me.
[2021-06-24 19:59] VITALS: BP 115/64
--- NOTE | 2021-06-24 20:07 | NUR ---
PT DENIES ANY CP OR SOA. LEFT SIDED CHEST TUBE IN PLACE WITH OUTPUT OF 30 FOR ENTIRETY OF SHIFT. ORDER FOR PLEURX PLEURAL CATH PLACEMENT IN IR, IR REQUESTED PATIENT BE NPO STARTING 1100. VERBAL CONSENT OBTAINED BY PT BROTHER MARY, DOCUMENTED ON CONSENT AND PLACED IN CHART AND VERIFIED BY SECOND NURSE. SLIDING SCALE INSULIN HELD AT LUNCH. CT SCAN COMPLETED. IR PROCEDURE NOT COMPLETED, PT GIVEN DINNER. PATIENT ATE 10% OF DINNER AND SLIDING SCALE INSULIN HELD. PATIENT PLACED NPO AT MIDNIGHT ANTICIPATING IR PROCEDURE TOMORROW. WILL CONTINUE TO FOLLOW.
[2021-06-25 04:14] VITALS: BP 123/69
--- NOTE | 2021-06-25 05:27 | NUR ---
PATIENTS CARES WHERE ASSUMED AT SHIFT CHANGE. PATIENT WAS ASSESSED AND MEDS WHERE PASSED. PATIENT WAS UP IN HIS CHAIR AT THE START OF HER SHIFT. PATIENT DOES SLEEP IN THE BED. PATIENT IS QUIET AND IS NOT TO ENGAGING. ROUNDS WHER DONE. THE BED IS IN A LOW AND LOCKED POSITION
[2021-06-25 07:28] VITALS: BP 128/80
[2021-06-25 11:21] VITALS: BP 116/82
[2021-06-25 13:27] LABS: HEMATOCRIT 32.8 % (42.0-52.0); HEMOGLOBIN 10.3 gm/dL (14.0-18.0); MCH 19.5 pg (26.0-34.0); MCHC 31.4 g/dL (28.0-37.0); MCV 62.1 fL (80.0-100.0); PLATELET COUNT 279 thou/uL (150-400); RBC 5.27 mil/uL (4.50-6.00); RDW 22.3 % (10.5-14.5); WBC 10.5 thou/uL (4.0-11.0)
[2021-06-25 13:33] LABS: CALCIUM 8.2 mg/dL (8.5-10.1); POTASSIUM 3.7 mmol/L (3.5-5.1)
[2021-06-25 15:21] VITALS: BP 117/76
[2021-06-25 15:49] LABS: ABSOLUTE NEUTROPHILS 8.9 thou/uL (1.4-8.2); ANISOCYTOSIS 1+; MICROCYTES 2+; PLATELET ESTIMATE NORMAL; POIKILOCYTOSIS 1+
--- NOTE | 2021-06-25 15:52 | NUR ---
[facility] NOT ACCEPTING PT TO RETURN UNLESS PLEUREX CATH IS MANAGED BY AN OUTSIDE COMPANY. [facility] HAS ACCEPTED AND WILL ACCOMODATE THAT. PTS BROTHER REPORTS ONCOLOGY HAS A FEW MORE TESTS TO RUN FOR DEFINITIVE DIAGNOSIS. ACUTE REHAB OR HOSPICE AT [facility] IS BEING RECOMMENDED. CARE TEAM WILL AWAIT DECISION ON RECOMMENDATIONS. DR GUY UPDATED ON PROGRESS. [facility] UPDATED ON PLAN OF CARE. CARE TEAM DID SPEAK TO AV[facility] AT [facility] REGARDING PLEUREX CATH CARE.
--- NOTE | 2021-06-25 17:13 | NUR ---
PT WAS SCHEDULED FOR A PROCEDURE THIS MORNING AND WAS MADE NPO AFTER MIDNIGHT LAST NIGHT. THE PROCEDURE WAS CANCELLED, I WAS NOT INFORMED OF THE CANCELLATION UNTIL MID AFTERNOON. PT WAS DIET WAS RESUMED AND PHARMACY WAS NOTIFIED OF THE LATE ADMINISTRATION OF MORNING MEDICATIONS. PHARMACY STATED THAT IT WAS OK TO GIVE THE MEDICATIONS. PATIENT SAT IN CHAIR THROUGHOUT THE SHIFT, DENIED ANY COMPLAINTS.
[2021-06-25 19:35] VITALS: BP 118/73
[2021-06-26 04:50] VITALS: BP 141/90
--- NOTE | 2021-06-26 06:23 | NUR ---
pt resting quietly in room voiding per urinal, iv infusing in r fa, no c/o pain, ct with minimal output, vss, will con't to monitor per ppoc.
[2021-06-26 07:48] VITALS: BP 144/92
[2021-06-26 11:33] VITALS: BP 109/75
[2021-06-26 15:59] VITALS: BP 118/74
--- NOTE | 2021-06-26 16:20 | NUR ---
Pt Alert, awake, confused. VS stable and afebrile throughout shift. Chest tube is leaking. Dr. Mendes and Dr. Rosario were consulted - waiting for decision on plan of care. Insertion site reinforced with foam tape. Pt worked with PT; ambulated to room door and back to chair - after working with PT teletypesetter monitor showed Sinus Arrhythmia and slight tachycardia (103-115). No concerns at this time. Continue to monitor.
--- NOTE | 2021-06-26 16:44 | NUR ---
PT CONTINUES TO HAVE CHEST TUBE. IT IS LEAKING. DR GUY WAS TO F/U WITH PULM REGARDING THE CHEST TUBE. CM HAS SPOKEN TO BROTHER WHO HAS SPOKEN TO ONCOLOGY. OPTIONS FOR DC PLANNING IS ACUTE REHAB VERSE ROSA MIRANDA WITH HH OR HOSPICE. CM FOLLOWING.
[2021-06-26 19:20] VITALS: BP 131/77
[2021-06-27 05:29] VITALS: BP 120/80
[2021-06-27 06:17] LABS: CALCIUM 8.3 mg/dL (8.5-10.1); CREATININE 0.9 mg/dL (0.7-1.3); POTASSIUM 3.4 mmol/L (3.5-5.1)
[2021-06-27 06:18] LABS: HEMATOCRIT 33.9 % (42.0-52.0); HEMOGLOBIN 10.9 gm/dL (14.0-18.0); MCH 20.2 pg (26.0-34.0); MCHC 32.3 g/dL (28.0-37.0); MCV 62.6 fL (80.0-100.0); RBC 5.41 mil/uL (4.50-6.00); RDW 21.9 % (10.5-14.5); WBC 8.1 thou/uL (4.0-11.0)
[2021-06-27 07:31] VITALS: BP 115/76
[2021-06-27 11:28] VITALS: BP 104/71
--- NOTE | 2021-06-27 13:32 | NUR ---
CHEST TUBE PULLED WITH NO COMPLICATIONS. POSSIBLE TRANSFER TO 5N ACUTE REHAB TODAY. [facility] HAS ACCEPTED AND SUBMITTING FOR AUTH. ALL PARTIES UPDATED.
[2021-06-27] MEDS ORDERED: PEPCID20 MG PO (14:38)
[2021-06-27] MEDS ORDERED: NOVOLOG100 UNIT/M SUBQ (14:38)
[2021-06-27] MEDS ORDERED: IPRAT-ALBUT 0.5-3 ML INH (14:38)
[2021-06-27] MEDS ORDERED: ENOXAPARIN40 MG/0.4 SUBQ (14:38)
[2021-06-27] MEDS ORDERED: Nicotine Transdermal TRANSDERM (14:38)
[2021-06-27] MEDS ORDERED: LANTUS100 UNIT/M SUBQ (14:38)
--- NOTE | 2021-06-27 15:00 | NUR ---
Milad MUNOZ INFORMED PTS INSURANCE HAS BEEN APPROVED FOR ACUTE REHAB. PT WILL TRANSFER TO ROOM 505 AT 1600. PT AND PTS BROTHER AWARE.
[2021-06-27 15:15] VITALS: BP 108/75
--- NOTE | 2021-06-27 16:50 | NUR ---
PATIENT DISCHARGED TO 5N REHAB. REPORT CALLED TO DAINA BARRIGA. TELE AND IV REMOVED.
--- NOTE | 2021-06-27 18:06 | PATH ---
[facility] [address] [place] [address] PATHOLOGY RPT PROCEDURE Name: JERSON CARRERA Vidal Room #: 206-P DIS IN M.R.#: [id number] Admission: 06/06/21 Date of : 50 Discharge: 06/27/21 Report #: [id number] Path Case #: [id number] LCA Accession Number: [id number] . 01 Material submitted: . PART A: lung - RLL TISSUE BIOPSY. Modifiers: right, lower PART B: lung - LEFT MAIN TISSUE BIOPSY. Modifiers: left, main . 01 Clinical history: . SOA, PNEUMONIA, SEPSIS RESP/BRONCH BRUSH . 02 Diagnosis: A. Lung tissue, right lower lobe, biopsy: - Invasive squamous cell carcinoma, keratinizing, moderately differentiated. (See comment) . B. Lung tissue, left main, biopsy: - Invasive squamous cell carcinoma, keratinizing, moderately differentiated. (See comment) (SCA:ignacia; 06/16/2021) S 06/16/2021 0926 Local . 02 Comment: This case was co-reviewed by Dr. Fernando Teixeira on 06/16/2021, who agrees with the above diagnosis. . An attempt was made to communicate the findings to Dr. Regulo Rosario with a message left on 06/16/2021. . (SCA:ignacia; 06/16/2021) . 02 Addendum: . Special studies report received from [facility], [address] [place] [address], [address], [place], [address], on case [id number], labeled with their number [id number], dated 06/27/2021. . PD-L1 22C3 Immunohistochemistry Analysis: Non-Small Cell Lung Cancer (NSCLC) . Body Site: Lung tissue, right lower lobe, biopsy. Specimen Received: 1 paraffin block labeled [id number]. Fixative: 10% Neutral Buffered Formalin. . Clinical History Invasive squamous cell carcinoma. . [address] [address] PATHOLOGY RPT PROCEDURE Name: JERSON CARRERA Room #: 206-P [facility] IN M.R.#: [id number] Admission: 06/06/21 Date of : 50 Discharge: 06/27/21 Report #: [id number] Path Case #: [id number] . Results Table PD-L1 22C3 NSCLC Tumor Interpretation Proportion Score (TPS) [id number] 60% High Expression- See Reference Ranges . Reference Ranges: PD-L1 22C3 in Non-Small Cell Lung Cancer (NSCLC) TPS less than 1%: No Expression . TPS 1%-49%: Expression . Eligible for KEYTRUDA (pembrolizumab) monotherapy . NOT eligible for LIBTAYO (cemiplimab-rwlc) monotherapy . TPS equal to or greater than 50%: High Expression . Eligible for KEYTRUDA (pembrolizumab) monotherapy . Eligible for LIBTAYO (cemiplimab-rwlc) monotherapy . Note: PD-L1 expression level TPS equal to or greater than 1% determines eligibility for KEYTRUDA (pembrolizumab). PD-L1 expression level TPS equal to or greater than 50% may be of interest to treating physician and includes eligibility for KEYTRUDA monotherapy. . at [facility] [employer] [facility]. Whit Peralta D.O. Pathologist . . Methodology: PD-L1 protein expression by immunohistochemistry is determined by using the Tumor Proportion Score (TPS), which is the percentage of at least 100 viable tumor cells showing partial or complete membrane staining at any intensity. . Intended Use: PD-L1, IHC 22C3 pharmDx is an FDA approved qualitative immunohistochemical assay using monoclonal mouse anti-PD-L1, Clone 22C3 intended for use in the detection of PD-L1 protein in formalin-fixed, paraffin-embedded (FFPE) non-small cell lung cancer (NSCLC) tissues using EnVision FLEX visualization system on [employer] Link 48. PD-L1 22C3 pharmDx is indicated as an aid in identifying NSCLC patients for treatment with KEYTRUDA (pembrolizumab) or LIBTAYO (cemiplimab-rwlc) monotherapy. See the [address] [address] PATHOLOGY RPT PROCEDURE Name: JERSON CARRERA Room #: 206-P DIS IN Kristin#: [id number] Admission: 06/06/21 Date of : 50 Discharge: 06/27/21 Report #: [id number] Path Case #: [id number] KEYTRUDA and LIBTAYOr product labels for specific clinical circumstances guiding PD-L1 testing. . References: Linda TS, Dill YL, Burke I, et al: Pembrolizumab versus chemotherapy for previously untreated, WM-M3-nbcwfboohf, locally advanced or metastatic nonsmall-cell lung cancer (KEYNOTE-042): a randomised, open-label, controlled, phase 3 trial. Lancet 2019, 393 (22031), 2487-3534. . Annika RS, Bar P, Brittaney D-W, et al: Pembrolizumab versus docetaxel for previously treated, CB-A3-swojsanp, advanced dev-cbvrj-iyce lung cancer (KEYNOTE-010): a randomized controlled trial. Lancet 2016, 387 (02661), 9605-9113. . Julianna EB, Roxy NA, Whitley R, et al: Pembrolizumab for the treatment of mvf-zlwtx-fyld lung cancer. N Engl J Med 2015, 372 (21), 8893-2353. . Hang Felix; Dashawn SPriyank; Kan bey, M.; et al. Cemiplimab monotherapy for first-line treatment of advanced oiw-xvixb-thod lung cancer with PD-L1 of at Least 50%: A multicentre, open-label, global, phase 3, randomised, controlled trial. Lancet 2020, 397 (25816), 592-604. . LIBTAYO Package Insert . Disclaimer(s): Any image(s) that accompany this report is/are a motor vehicle representative image(s) only and should not be used to render a diagnosis. . This interpretation is contingent on the specimen and the clinical information received. . Known positive cells or tissues are employed with each test and examined to ensure positivity. Positive and negative internal controls, if present, react appropriately. . This analysis is an adjunct to the evaluation of the referring physician and does not represent a final diagnosis. . The immunohistochemistry tests performed at [facility] [employer] [facility]. were validated on tissue fixed in 10% neutral buffered formalin. The performance characteristics of the tests performed on tissue processed in other fixatives is not known. . This assay has not been validated on decalcified tissues. Results should be interpreted with caution if this specimen was decalcified given the likelihood of decreased staining or false negativity on decalcified specimens. . [facility] [address] [place] [address] PATHOLOGY RPT PROCEDURE Name: JERSON CARRERA Vidal Room #: 206-P DIS IN M.R.#: [id number] Admission: 06/06/21 Date of : 50 Discharge: 06/27/21 Report #: [id number] Path Case #: [id number] Performing Labs: This Test was performed at [facility] [employer] [facility]. at [address] [place] [address], [address]. [facility] is a business unit of [employer] [employer] a wholly-owned subsidiary of [employer]. . A complete copy of the report is on file. . Professional services performed by [facility]. at [address] [place], [place] [address], [place] [address]. Technical services performed by [employer] [employer]. at [address] [place] [address], [facility] [address], [place] [address]. . (SCA:obed 06/27/2021) . . . Special studies report received from [facility], [address] [place] [address], [facility] [address], [place], [address], on case [id number], labeled with their number [id number], dated 06/27/2021. . PD-L1 22C3 Immunohistochemistry Analysis: Non-Small Cell Lung Cancer (NSCLC) . Body Site: Lung tissue, left main, biopsy. Specimen Received: 1 paraffin block labeled [id number]. Fixative: 10% Neutral Buffered Formalin. . Clinical History Invasive squamous cell carcinoma. . . Results Table PD-L1 22C3 NSCLC Tumor Interpretation Proportion Score (TPS) [id number] 60% High Expression- See Reference Ranges . Reference Ranges: PD-L1 22C3 in Non-Small Cell Lung Cancer (NSCLC) TPS less than 1%: No Expression . TPS 1%-49%: Expression . Eligible for KEYTRUDA (pembrolizumab) monotherapy . NOT eligible for LIBTAYO (cemiplimab-rwlc) monotherapy [address] [address] PATHOLOGY RPT PROCEDURE Name: LAURIEJERSON R Room #: 206-P DIS IN M.R.#: [id number] Admission: 06/06/21 Date of : 50 Discharge: 06/27/21 Report #: [id number] Path Case #: [id number] . TPS equal to or greater than 50%: High Expression . Eligible for KEYTRUDA (pembrolizumab) monotherapy . Eligible for LIBTAYO (cemiplimab-rwlc) monotherapy . Note: PD-L1 expression level TPS equal to or greater than 1% determines eligibility for KEYTRUDA (pembrolizumab). PD-L1 expression level TPS equal to or greater than 50% may be of interest to treating physician and includes eligibility for KEYTRUDA monotherapy. . at [facility]. Whit Peralta D.O. Pathologist . Methodology: PD-L1 protein expression by immunohistochemistry is determined by using the Tumor Proportion Score (TPS), which is the percentage of at least 100 viable tumor cells showing partial or complete membrane staining at any intensity. . Intended Use: PD-L1, IHC 22C3 pharmDx is an FDA approved qualitative immunohistochemical assay using monoclonal mouse anti-PD-L1, Clone 22C3 intended for use in the detection of PD-L1 protein in formalin-fixed, paraffin-embedded (FFPE) non-small cell lung cancer (NSCLC) tissues using EnVision FLEX visualization system on [employer] Link 48. PD-L1 22C3 pharmDx is indicated as an aid in identifying NSCLC patients for treatment with KEYTRUDA (pembrolizumab) or LIBTAYO (cemiplimab-rwlc) monotherapy. See the KEYTRUDA and LIBTAYOr product labels for specific clinical circumstances guiding PD-L1 testing. . References: Linda TS, Dill YL, Burke I, et al: Pembrolizumab versus chemotherapy for previously untreated, EK-A3-jrtiooqheh, locally advanced or metastatic nonsmall-cell lung cancer (KEYNOTE-042): a randomised, open-label, controlled, phase 3 trial. Lancet 2019, 393 (38663), 1002-5584. . Annika RS, Bar P, Brittaney D-W, et al: Pembrolizumab versus docetaxel for previously treated, UQ-K6-duqpbpvq, advanced zbv-ukise-nvcn lung cancer (KEYNOTE-010): a randomized controlled trial. Lancet 2016, 387 (21674), 7776-3791. . Julianna EB, Roxy NA, Whitley R, et al: Pembrolizumab for the treatment of khn-nbjor-owrg lung cancer. N Engl J Med 2015, 372 (21), 5362-3635. . [address] [address] PATHOLOGY RPT PROCEDURE Name: LAURIEJERSON R Room #: 206-P DIS IN M.R.#: [id number] Admission: 06/06/21 Date of : 50 Discharge: 06/27/21 Report #: [id number] Path Case #: [id number] Hang Felix; Vicky Tamez; Kan xiao s, M.; et al. Cemiplimab monotherapy for first-line treatment of advanced bip-lxikf-rwgc lung cancer with PD-L1 of at Least 50%: A multicentre, open-label, global, phase 3, randomised, controlled trial. Lancet 2020, 397 (05284), 922-154. . [employer] Package Insert . Disclaimer(s): Any image(s) that accompany this report is/are a motor vehicle representative image(s) only and should not be used to render a diagnosis. . This interpretation is contingent on the specimen and the clinical information received. . Known positive cells or tissues are employed with each test and examined to ensure positivity. Positive and negative internal controls, if present, react appropriately. . This analysis is an adjunct to the evaluation of the referring physician and does not represent a final diagnosis. . The immunohistochemistry tests performed at [facility]. were validated on tissue fixed in 10% neutral buffered formalin. The performance characteristics of the tests performed on tissue processed in other fixatives is not known. . This assay has not been validated on decalcified tissues. Results should be interpreted with caution if this specimen was decalcified given the likelihood of decreased staining or false negativity on decalcified specimens. . Performing Labs: This Test was performed at [facility]. at [address] [place] [address], [place] [address], [facility] [address]. [facility] is a business unit of [facility] a wholly-owned subsidiary of [employer]. . A complete copy of the report is on file. . Professional services performed by [facility] at [address] [place] [address], [facility] [address], [place] [address]. Technical services performed by [facility] at [address] [place] [address], [place] [address]. . (SCA:am 06/27/2021) . [facility]/06/27/2021 [place] [address] PATHOLOGY RPT PROCEDURE Name: JERSON CARRERA Room #: 206-P DIS IN M.R.#: [id number] Admission: 06/06/21 Date of : 50 Discharge: 06/27/21 Report #: [id number] Path Case #: [id number] Addendum Electronically Signed by Fran Hernandez DO, Pathologist . 02 Diagnosis provided by: . Fran Hernandez DO, Pathologist NPI- [id number] . 03 Electronically signed: . Fran Hernandez DO, Pathologist NPI- [id number] . 01 Gross description: . A. The specimen is received in formalin, labeled "Jerson Carrera RLL tissue biopsy". Received are multiple, pale kruse, needle core fragments measuring 1.4 x 0.4 x 0.1 cm in aggregate dimensions. The specimen is filtered and entirely submitted in cassette A1. . B. The specimen is received in formalin, labeled "Jerson Carrera L main tissue biopsy". Received are multiple, pale kruse, needle core fragments measuring 1.1 x 0.4 x 0.1 cm in aggregate dimensions. The specimen is filtered and entirely submitted in cassette B1. ([facility]; 06/12/2021) NRI/NRI 06/12/2021 [facility] . 02 Pathologist provided ICD-10: C34.31, C34.02 . 02 CPT . 267850, 246105 Specimen Comment: A courtesy copy of this report has been sent to [phone], [phone] Specimen Comment: [id number] Specimen Comment: Report sent to / DR ELLER Performed at: 01 [facility] [address] [facility] [address], [place] [id number] MD Jagjit Martinez MD Phone: [phone] Performed at: 02 [facility] [address] [place], [place] [id number] MD Fernando Teixeira MD Phone: [phone] Performed at: 03 [facility] [address] [id number] MD David Francisco MD Phone: [phone]
== END 2021-06-27 17:00 | DRG 871 ==
LOC: ER 21:30 → 2N 22:33 → EROBS 22:33 → 2N 06-07 02:13
PROVIDERS: Hospitalist; Internal Medicine; Nurse Practitioner Family; Pediatrics; Physician Assistant; ADMIT Hospitalist; ATTEND Hospitalist
PROC: 0W9B30Z Drainage of Left Pleural Cavity with Drainage Device, Percutaneous Approach (ICD-10-PCS; principal; 2021-06-07)
PROC: 0B9L8ZX Drainage of Left Lung, Via Natural or Artificial Opening Endoscopic, Diagnostic (ICD-10-PCS; 2021-06-11)
PROC: 0BDL8ZX Extraction of Left Lung, Via Natural or Artificial Opening Endoscopic, Diagnostic (ICD-10-PCS; 2021-06-11)
PROC: 05HY33Z Insertion of Infusion Device into Upper Vein, Percutaneous Approach (ICD-10-PCS; 2021-06-20)
PROC: B54NZZA Ultrasonography of Left Upper Extremity Veins, Guidance (ICD-10-PCS; 2021-06-20)
PROC: 0JH63XZ Insertion of Tunneled Vascular Access Device into Chest Subcutaneous Tissue and Fascia, Percutaneous Approach (ICD-10-PCS; 2021-06-20)
DX: A41.9 Sepsis, unspecified organism (principal); J96.01 Acute respiratory failure with hypoxia; E43 Unspecified severe protein-calorie malnutrition; G92.9 Unspecified toxic encephalopathy; J18.9 Pneumonia, unspecified organism; I82.90 Acute embolism and thrombosis of unspecified vein; J91.8 Pleural effusion in other conditions classified elsewhere; J44.1 Chronic obstructive pulmonary disease with (acute) exacerbation; G93.40 Encephalopathy, unspecified; C34.90 Malignant neoplasm of unspecified part of unspecified bronchus or lung; J44.0 Chronic obstructive pulmonary disease with (acute) lower respiratory infection; I10 Essential (primary) hypertension; R65.20 Severe sepsis without septic shock; E11.9 Type 2 diabetes mellitus without complications; F20.9 Schizophrenia, unspecified; R63.4 Abnormal weight loss; Z20.822 Contact with and (suspected) exposure to COVID-19; J44.9 Chronic obstructive pulmonary disease, unspecified; R53.81 Other malaise; J98.4 Other disorders of lung; Z68.22 Body mass index [BMI] 22.0-22.9, adult; Z79.899 Other long term (current) drug therapy; Z23 Encounter for immunization
CPT/HCPCS: 10081; 50010; 62110; 62900; 70005

== ENCOUNTER 2021-06-27 15:14 | Inpatient (IN) | payer OTHER ==
[~2021-06-27] VITALS: Ht 198.1 cm; Wt 81.6 kg
[~2021-06-27 15:14] MED LIST: ACETAMINOPHEN500 MG PO; AMLODIPINE BESY10 MG PO; CARVEDILOL25 MG PO; ENOXAPARIN40 MG/0.4 SUBQ; FOLIC ACID1 MG PO; IPRAT-ALBUT 0.5-3 ML INH; KLOR-CON M2020 MEQ PO; LANTUS100 UNIT/M SUBQ; LISINOPRIL20 MG PO; NOVOLOG100 UNIT/M SUBQ; Nicotine Transdermal TRANSDERM; PEPCID20 MG PO; RISPERDAL2 MG PO; RISPERIDONE2 MG PO; TORSEMIDE20 MG PO
--- NOTE | 2021-06-27 18:14 | NUR ---
PT UP TO FLOOR APPROX 1715. PT ALERT TO SELF, DAY YEAR, SITUATION. PT IS FORGETFUL AT TIMES. PT IN CHAIR. BED ALARM AND CHAIR ALARM ON. CALL LIGHT WITHIN REACH. VS CHARTED. WILL CONTNIUE TO MONITOR
[2021-06-27 19:10] VITALS: BP 138/79
--- NOTE | 2021-06-28 03:21 | NUR ---
assumed care approx 1900 evening 06/27. pt sitting up in recliner at change of shift. pt assisted into bed at hs. pt took hs meds with water tolerating well. pt appears to be sleeping soundly. bed alarm on and call light in reach. will continue to monitor.
[2021-06-28 06:01] LABS: HEMATOCRIT 30.5 % (42.0-52.0); HEMOGLOBIN 9.8 gm/dL (14.0-18.0); MCH 19.8 pg (26.0-34.0); MCHC 32.1 g/dL (28.0-37.0); MCV 61.7 fL (80.0-100.0); RBC 4.94 mil/uL (4.50-6.00); RDW 22.2 % (10.5-14.5); WBC 8.4 thou/uL (4.0-11.0)
[2021-06-28 06:23] LABS: ALBUMIN 1.7 g/dL (3.4-5.0); CALCIUM 8.2 mg/dL (8.5-10.1); CREATININE 0.9 mg/dL (0.7-1.3); POTASSIUM 3.5 mmol/L (3.5-5.1); TOTAL BILIRUBIN 0.2 mg/dL (0.2-1.0); TOTAL PROTEIN 5.7 g/dL (6.4-8.2)
[2021-06-28 06:45] LABS: FOLIC ACID 21.6 ng/mL (8.6-58.9)
--- NOTE | 2021-06-28 07:11 | NUR ---
PT BLOOD SUGAR FOR LAB WAS 42. PT UP IN BATHROOM WITH THERAPY AND NO SYMPTOMS. PT WASHED FACE AFTER USING TOILET. RECHECKED BLOOD SUGAR AND WAS 62, GAVE PT APPLE JUICE AND GRAHMN CRACKERS. PT PLEASANT THIS AM AND WORKING WITH THERAPY.
[2021-06-28 08:55] VITALS: BP 124/62
--- NOTE | 2021-06-28 09:49 | NUR ---
PT SITTING UP WITH ST. PT TOOK MEDS WHOLE WITH WATER. PT DID HAVE A COUGH AFTER TAKING K PILL. MIGHT HAVE TO BREAK UP MED IN HALF.
--- NOTE | 2021-06-28 11:13 | NUR ---
PT WALKING WITH THERAPY IN THE HERCULES. THERAPY STATED HE DID BETTER WITHOUT THE WALKER THAN WITH THE WALKER, GAIT IS STEADY.
[2021-06-28 13:53] LABS: OBSERVED RETIC COUNT 1.45 % (0.6-2.6)
[2021-06-28 16:27] LABS: % SATURATION 15 % (20-39); IRON 21 ug/dL (65-175); TIBC 142 ug/dL (250-450)
--- NOTE | 2021-06-28 16:33 | NUR ---
DTR STATED SHE DIDN'T WANT HER MOM D/C WEDNESDAY IF SHE IS WEAKER THAN WHEN SHE CAME UP. SHE WANTS UA PERFORMED BEFORE PT D/C HOME. PT STILL ON ORAL ABX FOR 2 MORE DAYS.
[2021-06-28 19:16] VITALS: BP 117/76
--- NOTE | 2021-06-29 01:26 | NUR ---
assumed care approx 1900 evening 06/28. pt lying in bed awake, somewhat forgetful and at times impulsive. pt incontinent of urine in bed and pt got up to chair on his own and alarm went off. reminded pt to call out and not get up on his own. changed sheets and pt put on fresh brief, pt voiding per urinal and sometimes spills and stood up and sprayed urine on floor. pt requires direction at times. pt did take hs meds with water tolerating well. pt in bed now moving around and sometimes appears to be sleeping. bed alarm on and call light in reach. will continue to monitor.
[2021-06-29 07:08] LABS: GLYCOHEMOGLOBIN (HGB A1C) 7.1 % (4.8-5.6)
[2021-06-29 12:41] VITALS: BP 103/73
--- NOTE | 2021-06-29 15:16 | NUR ---
ASSUMED CARE OF PT AT O7OO PT ALERT TO SELF ONLY. PT REFUSED TO CHANGE CLOTHING. PT TOLERATING MECHANICAL CHOPPED DIET. PT APPETITE GOOD. PT WALKED WITH P.T TODAY STEADY GAIT NOTED WITH SBA. WILL CONTNIUE TO MONITOR.
[2021-06-29 19:50] VITALS: BP 115/71
--- NOTE | 2021-06-30 02:41 | NUR ---
ASSUMED CARE AT 1900 OF 06/29. PATIENT WAS RECEIVED SLEEPING IN BED. ALERT AND ORIENTED TO SELF, DROWSY DURING ASSESSMENT. PATIENT WAS INCONTINENT OF BLADDER IN BED, BRIEF REMOVED AND LINEN CHANGED. TOLERATED ORAL MEDS WHOLE ONE AT A TIME WITH THIN LIQUIDS. CAN BE IMPULSIVE, AND HAS SET OFF BED ALARM ONCE OVERNIGHT TO TRY AND USE URINAL. PATIENT IS REMINDED TO USE CALL LIGHT WHEN NEEDING TO GET OUT OF BED. ASSISTED WITH URINAL USAGE. URINAL LEFT AT BEDSIDE. BOARDER FOAM DRESSING APPLIED TO CHEST TUBE SITE ON LEF CHEST, WOUND IS HEALING, CLEANSED WITH NS, NO DRAINAGE NOTED. FALL PRECAUTIONS IN PLACE, CALL LIGHT WITHIN REACH. WILL CONTINUE TO MONITOR.
[2021-06-30 07:10] VITALS: BP 130/91
[2021-06-30 07:45] VITALS: BP 130/91
--- NOTE | 2021-06-30 12:46 | NUR ---
Nutrition: REC Fe+ supplement. Fe+-21.
--- NOTE | 2021-06-30 15:26 | NUR ---
spoke with Jake at [facility]. faxed updated clinical information for review.
--- NOTE | 2021-06-30 15:46 | NUR ---
70 yr old male admitted to hospital on 06/07/21 with shortness of air. DX: large left pleural effusion, resp failure, pneumonia and copd. chest tube placed to suction. he had a bronchoscopy biopsy returned as suspected stage 4 cancer. CTS evaluated for possible more aggressive intervention but was not required. will need outpt office follow up for determination of chemo/radiation options. patients' brother is assisting with decision making. pt. is cont. with aggressive cares still. admitted to acute rehab unit for his encephalopathy and debilitation. Prior to hospital he was living at [facility], Independent, has a roommate, Uses [facility], can received meals at [facility].
[2021-06-30 19:35] VITALS: BP 111/67
--- NOTE | 2021-07-01 03:57 | NUR ---
ASSUMED CARE AT 1900 OF 06/30. PATIENT IS A&OX2, NO C/O PAIN. PATIENT TOLERATED ORAL MEDS WHOLE WITH THIN LIQUIDS. DRESSING TO LEFT CHEST IS CLEAN, DRY AND INTACT. PATIENT WAS INCONTINENT OF URINE IN BED AT . ASSISTED WITH GETTING CLEANED UP AND CHANGING LINENS. PATIENT REEDUCATED SUPERVISOR ABATTOIR LIGHT USAGE, AND PATIENT AGREES. URINAL LEFT AT BED SIDE, AND PATIENT HAS USED IT A COUPLE TIMES OVERNIGHT. SLEEPING ON HOURLY ROUNDINGS, NON LABOURED BREATHING NOTED. FALL RECUATIONS IN PLACE, CALL LIGHT WITHIN REACH. WILL CONTINUE TO MONITOR.
[2021-07-01 07:02] VITALS: BP 116/82
--- NOTE | 2021-07-01 08:48 | NUR ---
cm notified that he will be ready for dc on 07/04, updates to send to [facility].
[2021-07-01 09:30] VITALS: BP 116/82
--- NOTE | 2021-07-01 15:24 | NUR ---
ASSUMED CARE OF PT AT 0700. PT KNOWS NAME AND . PT DOES NOT USE CALL LIGHT. PT IS IMPULSIVE. PT CHAIR ALARM AND BED ALARM ON ROOM NEAR UNIT STATION. WILL CONTINUE TO MONITOR.
[2021-07-01 19:44] VITALS: BP 119/81
--- NOTE | 2021-07-02 03:31 | NUR ---
assumed care approx 1900 evening 07/01. pt lying in bed sleeping soundly at change of shift. pt took hs meds late in evening and went back to sleep. pt voiding per urinal and also in continent at times. bed alarm on and call light in reach. will continue to monitor.
[2021-07-02 08:00] VITALS: BP 121/89
[2021-07-02 08:15] VITALS: BP 121/89
--- NOTE | 2021-07-02 17:13 | NUR ---
LATE ENTRY CLARIFICATION REGARDING EXPRESSION AND COMPREHENSION: PER NURSE CLOTH TRIMMER HAND, PT ONLY EXPRESSING, "YEAH" TO ALL QUESTIONS, AND ABLE TO FOLLOW SIMPLE COMMANDS ONLY. CORRECTION TO BIMS ON ASMISSION 06/27 FOLLOWS: FREQUENTLY EXHIBITS DIFFICULTY WITH EXPRESSION, AND ONLY SOMETIMES UNDERSTANDS SIMPLE COMMANDS. FOR ADMISSION ASSESSMENT 06/27.
[2021-07-02 20:00] VITALS: BP 127/82
[2021-07-03 08:00] VITALS: BP 106/73
--- NOTE | 2021-07-03 08:44 | NUR ---
PT SITTING UP IN CHAIR. PT TOOK MEDS ONE AT A TIME WITHOUT ANY ISSUES. PT DENIES ANY PAIN OR SOB. PT UP IN ROOM MOD I WITH STEADY GAIT. PT SCROTUM IS ENLARGED. NO ISSUES WITH VOIDING, PT IS INCON. OF URINE AND BOWELS AT TIMES.
--- NOTE | 2021-07-03 13:13 | NUR ---
Team meeting, recommendation: Assist showering. cognition and memory deficits. Possible dc 07/04 back to [facility], [facility] . will need express transportation back to [facility]. Urology consulted for enlarged scrotum.
[2021-07-03] MEDS ORDERED: KLOR-CON M2020 MEQ PO (13:57)
[2021-07-03] MEDS ORDERED: FOLIC ACID1 MG PO (13:57)
[2021-07-03] MEDS ORDERED: TORSEMIDE20 MG PO (13:57)
[2021-07-03] MEDS ORDERED: VITAMIN D3125 MC1 PO (13:57)
[2021-07-03] MEDS ORDERED: IRON325 PO (13:57)
[2021-07-03] MEDS ORDERED: PEPCID20 MG PO (13:57)
[2021-07-03 16:43] LABS: HEMATOCRIT 33.6 % (42.0-52.0); HEMOGLOBIN 10.3 gm/dL (14.0-18.0); MCH 19.4 pg (26.0-34.0); MCHC 30.7 g/dL (28.0-37.0); MCV 63.2 fL (80.0-100.0); RBC 5.31 mil/uL (4.50-6.00); RDW 22.7 % (10.5-14.5); WBC 7.5 thou/uL (4.0-11.0)
[2021-07-03 16:57] LABS: CALCIUM 8.8 mg/dL (8.5-10.1); POTASSIUM 4.1 mmol/L (3.5-5.1)
[2021-07-04 08:00] VITALS: BP 129/89
[2021-07-04 09:23] VITALS: BP 129/89
--- NOTE | 2021-07-04 09:23 | NUR ---
PT SITTING UP IN CHAIR FOR BREAKFAST. PT DENIES ANY SOB OR PAIN. PT TOLERATED MEDS ONE AT A TIME. LUNGS CLEAR THIS AM, DRY COUGH AT TIMES. POSS D/C TO [facility] TODAY IF SEEN BY UROLOGY. PT WAS CONT. OF URINE DURING THE NIGHT.
--- NOTE | 2021-07-04 10:00 | NUR ---
DR. BALLESTEROS HERE TO SEE PT FOR UROLOGY. WILL ORDER CT SCAN OF [place] [facility] AND THEN F/U IN OFFICE. PT MAY D/C IF CT OK.
--- NOTE | 2021-07-04 11:38 | NUR ---
PT GOING DOWN TO CT SCAN AT THIS TIME. PT STATED HIS BDAY WAS 50 TO [employer]. TECH CALLED TO FLOOR TO SEE IF HE HAS A ID HERE TO CHECK BD.
--- NOTE | 2021-07-04 16:21 | NUR ---
GAVE REPORT TO DONALD AT [facility]. PT LEFT VIA W/C VAN AT 1600. PT HAS HIS BELONGINGS WITH HIM.
== END 2021-07-04 16:00 | DRG 91 ==
PROVIDERS: Internal Medicine; Nurse Practitioner Family; ADMIT Physical Medicine & Rehabilitation; ATTEND Physical Medicine & Rehabilitation
DX: G92.8 Other toxic encephalopathy (principal); J18.9 Pneumonia, unspecified organism; J96.01 Acute respiratory failure with hypoxia; E43 Unspecified severe protein-calorie malnutrition; J44.1 Chronic obstructive pulmonary disease with (acute) exacerbation; J44.0 Chronic obstructive pulmonary disease with (acute) lower respiratory infection; C34.92 Malignant neoplasm of unspecified part of left bronchus or lung; J91.0 Malignant pleural effusion; R53.81 Other malaise; I10 Essential (primary) hypertension; E11.9 Type 2 diabetes mellitus without complications; F20.9 Schizophrenia, unspecified; Z60.2 Problems related to living alone; D50.9 Iron deficiency anemia, unspecified; R91.8 Other nonspecific abnormal finding of lung field; E55.9 Vitamin D deficiency, unspecified; N50.9 Disorder of male genital organs, unspecified; R26.89 Other abnormalities of gait and mobility; N50.89 Other specified disorders of the male genital organs; Z87.891 Personal history of nicotine dependence; Z68.20 Body mass index [BMI] 20.0-20.9, adult
CPT/HCPCS: 10112

== ENCOUNTER → 2021-07-18 | Outpatient (CLI) | payer OTHER ==
[~2021-07-18] MED LIST changes: +IRON325 PO; +VITAMIN D3125 MC1 PO
== END ==
LOC: MRI 09:14
PROVIDERS: ATTEND Internal Medicine
DX: C34.01 Malignant neoplasm of right main bronchus (principal); I67.82 Cerebral ischemia; R90.82 White matter disease, unspecified

== ENCOUNTER → 2021-08-15 | Outpatient (CLI) | payer OTHER ==
[2021-08-15 11:32] LABS: HEMATOCRIT 38.4 % (42.0-52.0); HEMOGLOBIN 12.2 gm/dL (14.0-18.0); MCH 20.2 pg (26.0-34.0); MCHC 31.7 g/dL (28.0-37.0); MCV 63.9 fL (80.0-100.0); PLATELET COUNT 263 thou/uL (150-400); RBC 6.01 mil/uL (4.50-6.00); RDW 23.7 % (10.5-14.5); WBC 5.6 thou/uL (4.0-11.0)
[2021-08-15 11:58] LABS: ALBUMIN 3.2 g/dL (3.4-5.0); CALCIUM 8.9 mg/dL (8.5-10.1); POTASSIUM 3.6 mmol/L (3.5-5.1); TOTAL BILIRUBIN 0.3 mg/dL (0.2-1.0); TOTAL PROTEIN 7.8 g/dL (6.4-8.2)
[2021-08-15 21:05] LABS: ABSOLUTE NEUTROPHILS 2.6 thou/uL (1.4-8.2)
[2021-08-15 21:10] LABS: ANISOCYTOSIS 2+; MICROCYTES 1+; POIKILOCYTOSIS 2+
== END ==
LOC: LAB 10:50
PROVIDERS: ATTEND Internal Medicine
DX: C34.01 Malignant neoplasm of right main bronchus (principal)